=== PATIENT | female | born 1990 | race American Indian/Alaskan Native ===

== ENCOUNTER 2021-04-16 21:07 | Emergency (ER) | payer MEDICAID ==
[2021-04-16 22:39] VITALS: BP 115/96
[2021-04-17] MEDS ORDERED: ACETAMINOPHEN 500 MG TAB PO ONE (01:22)
[2021-04-17] MEDS ORDERED: ONDANSETRON 4 MG ODT TAB PO ONE (01:22)
[2021-04-17 01:53] LABS: Basophils % (Auto) 0.7 % (0.0-1.8); Eosinophils % (Auto) 0.4 % (0.0-4.3); Hematocrit 40.2 % (30.3-42.9); Hemoglobin 12.8 gm/dl (10.1-14.3); Lymphocytes # (Auto) 1.6 K/mm3 (1.2-5.4); Lymphocytes % (Auto) 44.7 % (13.4-35.0); Mean Corpuscular HGB Conc 32 % (30-34); Mean Corpuscular Volume 92 fl (79-97); Monocytes # (Auto) 0.4 K/mm3 (0.0-0.8); Monocytes % (Auto) 11.9 % (0.0-7.3); Platelet Count 186 K/mm3 (140-440); Red Blood Count 4.38 M/mm3 (3.65-5.03)
[2021-04-17 01:55] LABS: Bacteria,Urine 1+ /HPF (Negative); Bilirubin,Urine NEG (Negative); Blood,Urine NEG (Negative); Color,Urine Yellow (Yellow); Mucus,Urine 3+ /HPF; Protein,Urine <15 mg/dL mg/dL (Negative)
[2021-04-17 02:17] LABS: Alanine Aminotransferase 32 units/L (7-56); Albumin 3.7 g/dL (3.9-5); BUN/Creatinine Ratio 25; Blood Urea Nitrogen 10 mg/dL (7-17); Calcium 8.9 mg/dL (8.4-10.2); Hemolysis Index 7
--- NOTE | 2021-04-17 03:03 | Ultrasound Report ---
ULTRASOUND OBSTETRIC COMPLETE INDICATION / CLINICAL INFORMATION: LOWER ABDOMINAL PAIN. Clinical Gestational Age (GA) in weeks, days: 16 weeks 1 day TECHNIQUE: Transabdominal. COMPARISON: None available. FINDINGS: NUMBER: Single PRESENTATION: cephalic PLACENTA: anterior and free of the os. AMNIOTIC FLUID VOLUME: normal AMNIOTIC FLUID INDEX (XIOMARA) in cm (if measured): N/A ANATOMY: It is too early for anatomical survey. MEASUREMENTS: - Biparietal Diameter = 3.5 cm = 16 weeks, 6 days - Head Circumference = 13.0 cm = 16 weeks, 5 days - Abdominal Circumference = 10.2 cm = 16 weeks, 1 days - Femur Length = 2.2 cm = 16 weeks, 3 days - Estimated Weight (in grams, if calculated): 153 g - Heart Rate (beats per minute): 152 ADDITIONAL FINDINGS: Cervical length is measured at 3.0 cm PERCENTILE ESTIMATED WEIGHT (if calculated): 55 percentile AVERAGE ULTRASOUND AGE (AUA) in weeks, days = 16 weeks 4 days IMPRESSION: 1. Single intrauterine with AUA of 16 weeks, 4 days 2. No significant sonographic abnormality. Signer Name: Gianna Flores MD Signed: 04/17/2021 2:58 AM Workstation Name: [id number]
--- NOTE | 2021-04-17 04:55 | Emergency Department Report ---
- General Chief Complaint: Upper Respiratory Infection Stated Complaint: , HAVING TROUBLE BREATHING Source: patient Mode of arrival: Ambulatory Limitations: No Limitations - History of Present Illness Initial Comments: Patient is a A1 31-year-old -Surinamese female who is approximately 16 weeks gestation and with no past medical history presents to the ED with complaint of acute onset persistent suprapubic pain, diffuse body aches and pains, nasal and sinus congestion, persistent dry cough with mid posterior thoracic pain, frontal sinus headache and severe frontal sinus pressure for the last 5 days, worse in the last 2 days. Patient denies dizziness, syncope, chest pain, shortness of breath, nausea and vomiting or diarrhea, dysuria, urine frequency and urgency, vaginal bleeding or vaginal discharge. MD Complaint: cough, rhinorrhea, nasal congestion, sinus pain, other (Diffuse body aches and pains, low abdominal pain) -: Sudden, days(s) (5) Severity: severe Severity scale (0 -10): 7 Quality: sharp, aching Consistency: constant Improves With: nothing Worsens With: nothing Context: sick contacts Associated Symptoms: denies other symptoms, fever, chills, myalgias, headache, rhinorrhea, nasal congestion, cough, abdominal pain. denies: diaphoresis, sore throat, stiff neck, chest pain, shortness of breath, nausea, vomiting, diarrhea, dysuria, rash, confusion, weight loss, hoarseness Treatments Prior to Arrival: none - Related Data Previous Rx's Medication Instructions Recorded Last Taken Type Acetaminophen [Tylenol] 500 mg PO Q6HR PRN #40 tablet 04/17/21 Unknown Rx Azithromycin [Zithromax Z-CLARICE] 250 mg PO DAILY #6 tablet 04/17/21 Unknown Rx Cetirizine HCl [Zyrtec 10mg tab] 10 mg PO DAILY #30 tablet 04/17/21 Unknown Rx Promethazine HCl/Codeine 5 ml PO Q6H PRN #120 ml 04/17/21 Unknown Rx [Promethazine-Codeine Syrup] Promethazine [Phenergan] 25 mg PO Q6HR PRN #20 tab 04/17/21 Unknown Rx Allergies Allergy/AdvReac Type Severity Reaction Status Date / Time No Known Allergies Allergy Verified 04/17/21 02:25 ED Review of Systems ROS: Stated complaint: , HAVING TROUBLE BREATHING Other details as noted in HPI Constitutional: malaise, weakness. denies: chills, fever Eyes: denies: eye pain, eye discharge, vision change ENT: congestion, other (Frontal sinus pressure and headache). denies: ear pain, throat pain Respiratory: cough. denies: shortness of breath, wheezing Cardiovascular: denies: chest pain, palpitations Endocrine: no symptoms reported Gastrointestinal: abdominal pain (Suprapubic pain). denies: nausea, diarrhea Genitourinary: denies: urgency, dysuria, discharge Musculoskeletal: back pain, arthralgia, myalgia. denies: joint swelling Skin: denies: rash, lesions Neurological: headache. denies: weakness, paresthesias Psychiatric: denies: anxiety, depression Hematological/Lymphatic: denies: easy bleeding, easy bruising ED Past Medical Hx - Past Medical History Previous Medical History?: No - Surgical History Past Surgical History?: Yes Additional Surgical History: R 3rd digit surgery 2006 - Medications Home Medications: Home Medications Medication Instructions Recorded Confirmed Last Taken Type Acetaminophen [Tylenol] 500 mg PO Q6HR PRN #40 tablet 04/17/21 Unknown Rx Azithromycin [Zithromax Z-CLARICE] 250 mg PO DAILY #6 tablet 04/17/21 Unknown Rx Cetirizine HCl [Zyrtec 10mg tab] 10 mg PO DAILY #30 tablet 04/17/21 Unknown Rx Promethazine HCl/Codeine 5 ml PO Q6H PRN #120 ml 04/17/21 Unknown Rx [Promethazine-Codeine Syrup] Promethazine [Phenergan] 25 mg PO Q6HR PRN #20 tab 04/17/21 Unknown Rx ED Physical Exam - General Limitations: No Limitations General appearance: alert, in no apparent distress - Head Head exam: Present: atraumatic, normocephalic, normal inspection - Eye Eye exam: Present: normal appearance, PERRL, EOMI Pupils: Present: normal accommodation - ENT ENT exam: Present: mucous membranes moist, TM's normal bilaterally, normal exter nal ear exam, other (Grossly congested nasal passages; palpable frontal sinus tenderness) - Neck Neck exam: Present: normal inspection, full ROM. Absent: tenderness, thyromegaly - Respiratory Respiratory exam: Present: normal lung sounds bilaterally. Absent: respiratory distress, wheezes, rales, rhonchi, chest wall tenderness, accessory muscle use, decreased breath sounds - Cardiovascular Cardiovascular Exam: Present: normal rhythm, tachycardia, normal heart sounds. Absent: systolic murmur, diastolic murmur, rubs, gallop - GI/Abdominal GI/Abdominal exam: Present: soft, tenderness (Palpable moderate suprapubic tenderness), normal bowel sounds. Absent: guarding, rebound, hyperactive bowel sounds, hypoactive bowel sounds - Extremities Exam Extremities exam: Present: normal inspection, full ROM, normal capillary refill - Back Exam Back exam: Present: normal inspection, full ROM. Absent: tenderness, CVA tenderness (R), muscle spasm, paraspinal tenderness, vertebral tenderness - Neurological Exam Neurological exam: Present: alert, oriented X3, CN II-XII intact, normal gait, reflexes normal - Psychiatric Psychiatric exam: Present: normal affect, normal mood - Skin Skin exam: Present: warm, dry, intact, normal color. Absent: rash ED Course Vital Signs 04/16/21 22:35 Temperature 99.3 F Pulse Rate 103 H Respiratory 22 Rate Blood Pressure 115/96 [Right] O2 Sat by Pulse 100 Oximetry ED Medical Decision Making - Lab Data Result diagrams: 04/17/21 01:33 04/17/21 01:33 - Radiology Data Radiology results: report reviewed, image reviewed [facility] [address] [place] [address] Ultrasound Report Signed Patient: AYANA PACE MR#: [id number] 36 : 1990 Acct:[id number] Age/Sex: 31 / F ADM Date: 04/16/21 Loc: ED Attending Dr: Ordering Physician: DENTON NETTLES Date of Service: 04/17/21 Procedure(s): US OB >= 14 weeks Fetus Accession Number(s): [id number] cc: DENTON NETTLES ULTRASOUND OBSTETRIC COMPLETE INDICATION / CLINICAL INFORMATION: LOWER ABDOMINAL PAIN. Clinical Gestational Age (GA) in weeks, days: 16 weeks 1 day TECHNIQUE: Transabdominal. COMPARISON: None available. FINDINGS: NUMBER: Single PRESENTATION: cephalic PLACENTA: anterior and free of the os. AMNIOTIC FLUID VOLUME: normal AMNIOTIC FLUID INDEX (XIOMARA) in cm (if measured): N/A ANATOMY: It is too early for anatomical survey. MEASUREMENTS: - Biparietal Diameter = 3.5 cm = 16 weeks, 6 days - Head Circumference = 13.0 cm = 16 weeks, 5 days - Abdominal Circumference = 10.2 cm = 16 weeks, 1 days - Femur Length = 2.2 cm = 16 weeks, 3 days - Estimated Weight (in grams, if calculated): 153 g - Heart Rate (beats per minute): 152 ADDITIONAL FINDINGS: Cervical length is measured at 3.0 cm PERCENTILE ESTIMATED WEIGHT (if calculated): 55 percentile AVERAGE ULTRASOUND AGE (AUA) in weeks, days = 16 weeks 4 days IMPRESSION: 1. Single intrauterine with AUA of 16 weeks, 4 days 2. No significant sonographic abnormality. Signer Name: Gianna Flores MD Signed: 04/17/2021 2:58 AM Workstation Name: [id number] Transcribed By: Dictated By: Gianna Flores MD Electronically Authenticated By: Gianna Flores MD Signed Date/Time: 04/17/21257 DD/ 3 TD/TT: - Medical Decision Making This is a A1 31-year-old -[place]ames[place] female who is approximately 16 weeks gestation and with no past medical history presents to the ED with complaint of acute onset persistent suprapubic pain, diffuse body aches and pains, nasal and sinus congestion, persistent dry cough with mid posterior thoracic pain, frontal sinus headache and severe frontal sinus pressure for the last 5 days, worse in the last 2 days. In the ED, patient is alert and oriented x3 and is not in distress. Patient was treated for pain in the ED and also treated for nausea. Lab test results were reviewed and are all nonactionable. Pelvic ultrasound showed a single intrauterine with AUA of 16 weeks, 4 days and heart rate of 152 bpm. On reevaluation, patient felt better and was discharged home on medications. Patient was advised to follow-up with her [employer] physician Dr. Lemus in 5 to 7 days for reevaluation or return to the ED immediately if symptoms get worse. - Differential Diagnosis URI; sinusitis; bronchitis; UTI; pneumonia; Critical care attestation.: If time is entered above; I have spent that time in minutes in the direct care of this critically ill patient, excluding procedure time. ED Disposition Clinical Impression: Acute upper respiratory infection, Abdominal pain during in second trimester Acute frontal sinusitis Qualifiers: Recurrence: non-recurrent Qualified Code(s): J01.10 - Acute frontal sinusitis, unspecified Acute bronchitis Qualifiers: Bronchitis organism: other organism Qualified Code(s): J20.8 - Acute bronchitis due to other specified organisms Disposition: 01 HOME / SELF CARE / HOMELESS Is pt being admited?: No Does the pt Need Aspirin: No Condition: Stable Instructions: Acute Bronchitis (ED), Sinusitis, Adult, [id number], Upper Respiratory Infection, Adult, [id number], Cough, Adult, [id number], Abdominal Pain During , [id number], Acute Bronchitis, Adult, [id number] Additional Instructions: All lab test results were reviewed and are all nonactionable. Pelvic ultrasound showed a single intrauterine with AUA of 16 weeks, 4 days with a heart rate of 152 bpm. Therefore take medication with food, drink plenty of fluids and follow-up with your [employer] physician Dr. Lemus in 5 to 7 days for reevaluation. Return to the ED immediately if symptoms get worse. Prescriptions: Acetaminophen [Tylenol] 500 mg PO Q6HR PRN #40 tablet PRN Reason: Pain or fever Promethazine [Phenergan] 25 mg PO Q6HR PRN #20 tab PRN Reason: Nausea Promethazine HCl/Codeine [Promethazine-Codeine Syrup] 5 ml PO Q6H PRN #120 ml PRN Reason: Cough Azithromycin [Zithromax Z-CLARICE] 250 mg PO DAILY #6 tablet Cetirizine HCl [Zyrtec 10mg tab] 10 mg PO DAILY #30 tablet Referrals: YUSRA MAGALLANES MD [Primary Care Provider] - 3-5 Days OLGA LEMUS MD [Staff Physician] - 3-5 Days Time of Disposition: 05:00 Print Language: MALAGASY
== END 2021-04-17 05:52 | disposition home or self-care (01) ==
LOC: ED 21:07
DX: O99.512 Diseases of the respiratory system complicating pregnancy, second trimester (principal); O26.892 Other specified pregnancy related conditions, second trimester; R10.9 Unspecified abdominal pain; J01.10 Acute frontal sinusitis, unspecified; J20.8 Acute bronchitis due to other specified organisms
CPT/HCPCS: 36415; 76805; 80053; 81001; 84703; 85025; 87210; 99284; J3490; Q0162